=== PATIENT | female | born 1970 | race African-American/Black ===

== ENCOUNTER 2016-05-27 12:04 | Emergency (ER) | payer SELFPAY ==
[~2016-05-27] VITALS: Ht 165.1 cm; Wt 122.5 kg
[2016-05-27] MEDS ORDERED: LOSARTAN POTASS25 MG ORAL (12:18)
[2016-05-27] MEDS ORDERED: ROBITUSSIN COU118 M4 PO (12:44)
[2016-05-27] MEDS ORDERED: ZITHROMAX250 MG ORAL (12:44)
[2016-05-27] MEDS ORDERED: PROAIR HFA8.5 GM INH (12:44)
[2016-05-27 12:54] VITALS: BP 160/87
[2016-05-27 12:59] VITALS: BP 160/87
--- NOTE | 2016-05-27 19:29 | Emergency Room Report ---
History of Present Illness General Chief Complaint: Flu Like Symptoms Source: Patient Present Illness [facility] The patient is a 46-year-old female with a Hx of asthma presenting with chest congestion and productive cough which began one week prior and is getting worse. The patient also admits to sore throat. The patient also admits to subjective fevers. The patient denies sick contacts or recent travel. The patient denies SOB, CP, N, V, [place]YOLA, rash, hemoptysis, abd pain Allergies: Coded Allergies: No Known Allergies (Unverified , 05/27/16) Patient History Past Medical History: see triage record Pertinent Family History: none Reviewed Nursing Documentation: PMH: Agreed, PSxH: Agreed Nursing Documentation-PMH Past Medical History: No History, Except For Hx Hypertension: Yes Review of Systems All Other Systems: negative except mentioned in HPI Physical Exam Vital Signs Date Time Temp Pulse Resp B/P Pulse Ox O2 Delivery O2 Flow Rate FiO2 05/27/16 12:14 98.1 106 20 160/87 97 Room Air Sp02 EP Interpretation: reviewed, normal General Appearance: no apparent distress, alert, GCS 15, non-toxic Head: normocephalic, atraumatic ENT: hearing grossly normal, no angioedema, normal voice, TMs + canals normal, uvula midline, tonsillar swelling, pharyngeal erythema Neck: full range of motion, supple/symm/no masses Respiratory: chest non-tender, lungs clear, no respiratory distress, no accessory muscle use, speaking full sentences, wheezing - diffuse Cardiovascular #1: regular rate, rhythm, no edema Musculoskeletal: back normal, gait/station normal, normal range of motion, non- tender Neurologic: alert, oriented x3, responsive, motor strength/tone normal, sensory intact, speech normal Psychiatric: judgement/insight normal, memory normal, mood/affect normal, no suicidal/homicidal ideation Skin: normal color, no rash, warm/dry, well hydrated Lymphatic: no adenopathy Medical Decision Making PA Attestation Dr. Silveira is my supervising physician. Patient management was discussed with my supervising physician Diagnostic Impression: Primary Impression: Asthma Additional Impression: Pharyngitis, acute ER Course The patient is a 46-year-old female presenting with chest congestion and productive cough Differential diagnosis include but not limited to pharyngitis, sinusitis, AOM, bronchitis, PNA PE: Vitals show tachycardia. NAD HEENT: tonsils are erythematous and edematous. uvula midline. Lungs: diffuse wheezing. Good breath sounds. Pt will be DC'ed home and given prescription for abx, albuterol, and cough medication Last Vital Signs Date Time Temp Pulse Resp B/P Pulse Ox O2 Delivery O2 Flow Rate FiO2 05/27/16 12:59 98.1 106 20 160/87 97 Room Air Status: improved Disposition: HOME, SELF-CARE Condition: Improved Scripts Guaifenesin/Dextromethorphan (Robitussin Cough-Chest Dm Liq) 118 Ml Liquid 10 ML PO Q4HR, #118 ML Prov: BRYAN HERNANDEZ P.A. 05/27/16 Albuterol Sulfate* (PROAIR HFA*) 8.5 Gm Hfa.aer.ad 2 PUFFS INH Q6H, #8.5 GM 0 Refills Prov: BRYAN HERNANDEZ P.A. 05/27/16 Azithromycin* (ZITHROMAX*) 250 Mg Tablet 250 MG ORAL DAILY, #6 TAB 0 Refills Take two tables once daily for 1 day, then one tablet once daily for 4 days. Prov: BRYAN HERNANDEZ P.A. 05/27/16 Referrals: NOT CHOSEN IPA/,REFERRING (PCP) Departure Forms: Return to Work Return to Work Date: May 30, 2016 Patient Instructions: Pharyngitis Additional Instructions: I discussed my findings with the patient. All questions and concerns have been answered. Treatment and medication compliance have been addressed. I advised the patient that they need to follow up with PMD in 3-5 days. Return to ED if pain remains or worsens, cough worsens or remains, you notice blood in your sputum, you notice wheezing, you experience a fever, or if needed for any reason. Patient verbalized understanding of discharge instructions. BRYAN HERNANDEZ May 27, 2016 19:29
== END 2016-05-27 13:00 | disposition home or self-care (01) ==
LOC: EMR 13:00
DX: J45.909 Unspecified asthma, uncomplicated (principal); J02.9 Acute pharyngitis, unspecified; I10 Essential (primary) hypertension
CPT/HCPCS: 99282